=== PATIENT | male | born 1980 | race Caucasian/White ===

== ENCOUNTER 2017-05-20 08:29 | Day surgery (SDC) | payer OTHER ==
[~2017-05-20] VITALS: Ht 180.3 cm; Wt 122.5 kg
[~2017-05-20 08:29] MED LIST: BUPIVACAINE MPF 0.5% 30 ML VIAL. ONE; HYDROmorphone 2 MG/ML VIAL IV PRN; IV RINGERS,LACTATED 1000ML 1,000 ML IV SCH; LIDOCAINE 1% 1 ML SYRINGE. ID PRN; LIDOCAINE 1% PF 30 ML VIAL. ONE; MORPHINE SULFATE 2 MG/ML DISP.SYRIN. IV PRN; ONDANSETRON PF 4 MG/2 ML VIAL. IV PRN; PROCHLORPERAZINE 10 MG/2 ML VIAL. IV PRN; fentaNYL PF VIAL 100 MCG/2 ML VIAL IV PRN
[2017-05-20] MEDS ORDERED: fentaNYL PF VIAL 100 MCG/2 ML VIAL ONE (09:25)
[2017-05-20] MEDS ORDERED: ONDANSETRON PF 4 MG/2 ML VIAL. ONE (09:25)
[2017-05-20] MEDS ORDERED: LIDOCAINE 2% PF Vial for OR 5 ML VIAL. ONE (09:25)
[2017-05-20] MEDS ORDERED: PROPOFOL 20 ML IV ONE (09:25)
[2017-05-20] MEDS ORDERED: DEXAMETHASONE SOD PHOS 20 MG/5 ML VIAL. ONE (09:25)
[2017-05-20] MEDS ORDERED: DESFLURANE 31 TO 60 MINUTES IH ONE (09:26)
--- NOTE | 2017-05-20 09:29 | DISCH ---
DISCHARGE INSTRUCTIONS Condition on Discharge Condition on Discharge: Stable Activity After Discharge Activity Instructions for Disc: Other, see below Bathing Instructions: Shower-keep dressing dry Lifting Instructions after Dis: No heavy lifting, No pulling or pushing, Do not lift >10 pounds Weight Bearing Status after Di: As tolerated Diet after Discharge Diet after Discharge: Regular Wound Incision Care Wound/Incision Care: Ice to area for comfort, Keep wound/cast CDI, Keep wound elevated, Change dressing Contacting the DR. after DC Call your doctor for: Concerns you may have Follow-Up Follow up with: Angel in 2wks BETO LITTLE II, MD May 20, 2017 09:29
--- NOTE | 2017-05-20 09:29 | PDOC ---
BRIEF OPERATIVE NOTE Date: May 20, 2017 Pre-Op Diagnosis L forearm mass Post-Op Diagnosis same Procedure Performed Excision of L forearm mass Surgeon Angel Anesthesiologist Heidi Complications none BETO LITTLE II, MD May 20, 2017 09:29
[2017-05-20] MEDS ORDERED: MIDAZOLAM HCL/PF 2 MG/2 ML VIAL. ONE (10:05)
[2017-05-20] MEDS ORDERED: BUPIVAC MPF-EPI 0.5%-1:200000 30 ML VIAL. ONE (10:17)
[2017-05-20 12:01] VITALS: BP 122/70
--- NOTE | 2017-05-20 17:19 | OP ---
DATE OF SURGERY: 05/20/2017 SURGEON: Mikey Little MD [employer] MANAGER: None. PREOPERATIVE DIAGNOSIS: Left forearm mass. POSTOPERATIVE DIAGNOSIS: Left forearm mass. PROCEDURE PERFORMED: Open excision of left forearm mass. COMPLICATIONS: None. ESTIMATED BLOOD LOSS: 20 mL. SPECIMENS: Forearm mass was tagged and sent to pathology for specimen. REASON FOR PROCEDURE: The patient is a very pleasant 37-year-old who has a history of lipomas and had one that had been causing him more pain and he felt like it may have been enlarging over his left ulnar side of his forearm. For details, please see my outpatient notes. Because of the local symptoms, we had a discussion of the risks, benefits, alternatives to proceeding with the above surgery and he elected to proceed. DESCRIPTION OF PROCEDURE: The patient was greeted in the preoperative area by myself where the correct extremity was marked and verified. He was taken to the operative suite and antibiotics were started en route. Once in the OR, he was transferred gently supine to the OR table and the hand table attached and was secured to the bed. He had conscious sedation, monitored by Anesthesia. I then injected approximately 20 mL of a local anesthetic mixture around the mass and allowed this to take effect. I then made an approximately 8 cm incision centered over the mass and incised skin with a scalpel and dissected the subcutaneous tissue with tenotomies. I used a needle tip and bipolar cautery for hemostasis throughout this procedure. I identified the capsule of the mass and bluntly dissected circumferentially around it. It was adherent with some fibrotic tissue to the deeper tissues. I used a combination of tenotomies and digital dissection. After working circumferentially around the mass, I was able to deliver from the operative field. I then placed a long Vicryl loop at the distal aspect and a short Vicryl loop at the ulnar border. This was then sent out for specimen. I inspected the wound bed. I used bipolar cautery at a couple of places for hemostasis and then irrigated out the wound. I then closed the subcutaneous tissue with inverted interrupted 2-0 and I took a small bite of the underlying fascia to help keep the skin opposed to fascia. I then used a running 4-0 Monocryl in a buried subcuticular fashion for skin. We then placed Steri-Strips, Xeroform and a bulky soft dressing including an Anthony wrap over the operative site. The patient tolerated this well. At the conclusion of surgery, all counts were reported correct x 2, prior to completion of wound closure. He was awakened from his sedation and transferred gently supine to the recovery room cart. Postop plan is to follow up on the pathology report. He will be discharged home today. I did discuss activity restrictions and wound care with he and his . We will see him back in 2 weeks, sooner should problems arise. MIKEY LITTLE MD DR: KENDAL/warner JOB#: [id number] / [id number] BRYAN
--- NOTE | 2017-05-29 18:34 | PATHOLOGY ---
PATHOLOGY REPORT * * * * * * * * FINAL DIAGNOSIS: Segment of fibroadipose tissue, left forearm mass: - Edema and focal stromal myxoid degeneration with focal fibrinous exudate, recent hemorrhage, chronic inflammation, and small focus of non-caseating granulomatous inflammation. COMMENT: The findings appear reactive and inflammatory. There is no evidence of malignancy. (JPM/db; 05/29/2017) REPORT ELECTRONICALLY SIGNED BY: Musa Alva M.D. DATE/TIME: 05/29/2017 18:34 * * * * * * * * GROSS PATHOLOGY: The specimen is received in formalin labeled "Delfino Kelly, left forearm mass". Received is an unoriented segment of yellow-castaneda lobulated tissue with a small loop suture designating the ulnar aspect, and a large loop suture designating the distal aspect. The specimen measures 7.0 cm from proximal to distal, 5.8 cm from radial to ulnar, and 1.5 cm from anterior to posterior. The specimen is inked as follows: Proximal-blue, distal-red, radial-green, ulnar-yellow, anterior-black, posterior-orange. Sectioning reveals white-castaneda to yellow-castaneda cut surfaces throughout. The specimen is submitted representatively in cassettes A1 through A6, to encompass all margins. (CAA; 05/23/2017) INITIAL CPT CODE(S): 86728 Professional services performed [place] [address] Technical services performed by [facility] at [address] [place] [address] [address], [place] [address]. SPECIMEN(S) RECEIVED: A.Left forearm mass CLINICAL HISTORY: Left forearm mass PATIENT: DELFINO KELLY /AGE: 201/10/1980 (Age: 37) PATIENT #: [id number] ALT CASE #: SPECIMEN COLLECTION DATE: 05/20/2017 SPECIMEN RECEIVED DATE: 05/20/2017 [facility] - [address] [place] [address] - PHONE: [phone] * * * END OF REPORT * * *
== END 2017-05-20 12:24 | disposition home or self-care (01) ==
LOC: SURG 08:29
PROVIDERS: ATTEND Orthopaedic Surgery Sports Medicine
DX: M79.9 Soft tissue disorder, unspecified (principal); E66.9 Obesity, unspecified; Z68.39 Body mass index [BMI] 39.0-39.9, adult; Z87.39 Personal history of other diseases of the musculoskeletal system and connective tissue
CPT/HCPCS: 11406; 88305; J0690; J1100; J2250; J2405; J2704; J3010; J3490